=== PATIENT | female | born 1970 | race Caucasian/White ===

== ENCOUNTER 2020-07-29 11:05 | Inpatient (IN) | payer OTHER ==
[~2020-07-29] VITALS: Ht 160 cm; Wt 76.2 kg
[2020-07-29] MEDS ORDERED: COZAAR100 MG PO (11:11)
[2020-07-29 11:42] LABS: BASOPHILS 1.1 % (0-2); EOSINOPHILS 1.1 % (0-7); HEMATOCRIT 41.3 % (36.0-48.0); LYMPHOCYTES 16.1 % (15-50); MCH 32.6 pg (26.0-34.0); MCV 95.9 fL (80.0-100.0); MEAN PLATELET VOLUME 7.6 fL (7.4-10.4); MONOCYTES 12.5 % (2-11); NEUTROPHILS 69.2 % (40-80); PLATELET COUNT 199 10x3/uL (130-400); RBC 4.31 10x6/uL (4.00-5.40); RDW 15.4 % (11.5-14.5); WBC 6.5 10x3/uL (4.8-10.8)
[2020-07-29 11:50] LABS: ANION GAP 11.2 mmol/L (8-16); CALCIUM 9.1 mg/dL (8.5-10.1); CARBON DIOXIDE 27.8 mmol/L (21.0-32.0); CREATININE - SERUM 1.8 mg/dL (0.6-1.3)
[2020-07-29 12:02] LABS: ALBUMIN 3.4 g/dL (3.4-5.0); BILIRUBIN - TOTAL 12.81 mg/dL (0.2-1.3); PROTEIN - SERUM 7.5 g/dL (6.4-8.2)
[2020-07-29 13:34] LABS: APTT 31.9 SECONDS (22.8-39.4); INR 1.15 (0.85-1.17); PROTIME 13.6 SECONDS (11.6-15.0)
[2020-07-29 17:30] VITALS: BP 133/85
[2020-07-29 18:30] VITALS: BP 133/85; BMI 29.8
[2020-07-29 21:57] VITALS: BP 133/74
--- NOTE | 2020-07-29 22:00 | NUR ---
PT HAD HIBICLENS SHOWER. COMPLETE ASSESSMENT PER FLOWSHEET. NO OTHER NEEDS. WILL CONTINUE TO MONITOR.
[2020-07-30 04:35] LABS: BASOPHILS 1.4 % (0-2); EOSINOPHILS 2.2 % (0-7); HEMOGLOBIN 12.6 g/dL (12-16); LYMPHOCYTES 18.5 % (15-50); MCH 32.5 pg (26.0-34.0); MCHC 34.1 g/dL (31.0-37.0); MCV 95.3 fL (80.0-100.0); MEAN PLATELET VOLUME 8.2 fL (7.4-10.4); MONOCYTES 10.8 % (2-11); NEUTROPHILS 67.1 % (40-80); PLATELET COUNT 161 10x3/uL (130-400); RBC 3.88 10x6/uL (4.00-5.40); RDW 15.7 % (11.5-14.5)
[2020-07-30 04:37] LABS: WBC 4.8 10x3/uL (4.8-10.8)
[2020-07-30 04:54] LABS: ALBUMIN 2.7 g/dL (3.4-5.0); ANION GAP 9.7 mmol/L (8-16); BILIRUBIN - TOTAL 12.23 mg/dL (0.2-1.3); CALCIUM 8.4 mg/dL (8.5-10.1); CARBON DIOXIDE 27.5 mmol/L (21.0-32.0); CREATININE - SERUM 1.5 mg/dL (0.6-1.3); POTASSIUM - SERUM 4.2 mmol/L (3.5-5.1); PROTEIN - SERUM 6.1 g/dL (6.4-8.2)
--- NOTE | 2020-07-30 04:59 | NUR ---
ATTEMPTED TO CALL DR. CAMPUZANO TO VERIFY DATE OF SURGERY. ORDER FOR PT TO BE NPO AFTER MIDNIGHT ON 07/29/20 BUT DATE OF PROCEDURE ON CONSENT ORDER IS 07/31/20. PT STATES SHE THOUGHT SURGERY IS SUPPOSED TO BE TODAY WELL. UNABLE TO REACH DR. CAMPUZANO. LEFT VOICEMAIL MESSAGE LAST NIGHT AND RECORDING SAYS "CALL CUSTOMER UNAVAILABLE" THIS MORNING.
[2020-07-30 06:38] VITALS: BP 114/73
[2020-07-30 06:47] LABS: UDS - AMPHET NEGATIVE QUAL (NEGATIVE); UDS - BARB NEGATIVE QUAL (NEGATIVE); UDS - BENZO NEGATIVE QUAL (NEGATIVE); UDS - COCAINE NEGATIVE QUAL (NEGATIVE); UDS - OPIATE POSITIVE QUAL (NEGATIVE); UDS - PCP NEGATIVE QUAL (NEGATIVE); UDS - THC NEGATIVE QUAL (NEGATIVE)
[2020-07-30 07:38] LABS: BILIRUBIN NEGATIVE (NEGATIVE); KETONE NEGATIVE (NEGATIVE); NITRITE NEGATIVE (NEGATIVE); UROBILINOGEN NORMAL mg/dL (< 2)
[2020-07-30 07:39] LABS: BACTERIA FEW HPF (NONE SEEN); SQUAMOUS EPITHELIAL 0-5 HPF (0-4); WHITE CELLS - URINE 1 HPF (0-4)
[2020-07-30 09:11] LABS: HEPATITIS C ANTIBODY <0.1 S/CO RAT (0.0-0.9)
[2020-07-30 09:28] VITALS: BP 117/64
[2020-07-30 12:16] VITALS: BP 132/78
--- NOTE | 2020-07-30 12:43 | NUR ---
0700 BEDSIDE REPORT RECEIVED REMAINS NPO FOR PROCEEDURE
--- NOTE | 2020-07-30 12:56 | NUR ---
0800 DR CAMPUZANO A BEDSIDE TELLIMG PT HER SURGERY WILL BE TOMORROW 6/ CLEAR LIQUIDS ORDERED
--- NOTE | 2020-07-30 12:57 | NUR ---
5266 DR CAMPUZANO CALLED TO INFORM THAT HE WILL DO HER SURGERY TODAY REMOVED ICE WATER FROM ROOM PATIENT IS IN SHOWER AT [facility] INFORMED ANESTHESIA THAT PT HAD WATER 45 MIN AGO.
--- NOTE | 2020-07-30 12:59 | NUR ---
1225 PT OUT OF SHOWER AND REPORTED SHE HAD 450 ML OF SPRITE NOTIFIED SURGERY STAFF THAT LAST INTAKE WAS AT 1145 AM
--- NOTE | 2020-07-30 13:02 | NUR ---
1235 EKG COMPLETE. INSTRUCTED NPO VERBALIZED UNDERSTANDING PT CALLED SON TO INFORM HIM OF HER SURGERY TODAY
[2020-07-30 14:42] VITALS: Ht 160 cm; Wt 76.2 kg
--- NOTE | 2020-07-30 17:49 | NUR ---
PT ACTIVELY SICK UPON ENTRY TO ROOM. ADMINISTERED PHENERGAN ACCORDING TO PACU ORDERS.
--- NOTE | 2020-07-30 18:24 | NUR ---
1753 ARRIVED FROM PACU WITH STAFF [employer] OPERATOR GAVE DEMEROL IV INITIATED FREQUENT VITAL SIGNS SON REMAINS AT BEDSIDE
[2020-07-30 20:00] VITALS: BP 119/67
[2020-07-31 00:53] VITALS: BP 122/67
[2020-07-31 04:00] VITALS: BP 112/61
[2020-07-31 07:17] LABS: BASOPHILS 0.5 % (0-2); EOSINOPHILS 0 % (0-7); HEMATOCRIT 37.9 % (36.0-48.0); LYMPHOCYTES 7.7 % (15-50); MCH 33.2 pg (26.0-34.0); MCHC 34.2 g/dL (31.0-37.0); MCV 97.1 fL (80.0-100.0); MEAN PLATELET VOLUME 8.6 fL (7.4-10.4); MONOCYTES 4.5 % (2-11); NEUTROPHILS 87.3 % (40-80); PLATELET COUNT 187 10x3/uL (130-400); RBC 3.91 10x6/uL (4.00-5.40); RDW 16.3 % (11.5-14.5)
[2020-07-31 07:24] LABS: WBC 7.1 10x3/uL (4.8-10.8)
[2020-07-31 08:02] LABS: ALBUMIN 2.9 g/dL (3.4-5.0); ANION GAP 12.5 mmol/L (8-16); BILIRUBIN - TOTAL 12.08 mg/dL (0.2-1.3); CREATININE - SERUM 1.3 mg/dL (0.6-1.3); POTASSIUM - SERUM 4.5 mmol/L (3.5-5.1); PROTEIN - SERUM 6.5 g/dL (6.4-8.2)
--- NOTE | 2020-07-31 08:32 | NUR ---
PT RESTING IN BED WITH EYES CLOSED. AWAKENS WITH STAFF CALLING NAME. NO ACUTE DISTRESS NOTED. REPORTS PAIN 3/10 AT THIS TIME, FOLLOWING PRN PAIN MEDICATIONS. IV TO LEFT AC WITH NS @ 75ML/HR INFUSING VIA PUMP. SITE WITHOUT REDNESS OR EDEMA. LAP SITES X 3 TO ABDOMEN, C/D/I, ABDIEL DRAIN INTACT WITH SCANT AMOUNT OF DRAINAGE NOTED AT THIS TIME. DENIES FURTHER NEEDS AT THIS TIME. CL WITHIN REACH. ENCOURAGED TO CALL WITH NEEDS. CONTINUE POC
[2020-07-31 08:53] VITALS: BP 111/62
[2020-07-31 12:58] VITALS: BP 113/68
[2020-07-31 17:11] VITALS: BP 138/74
[2020-07-31 20:00] VITALS: BP 127/83
[2020-08-01] VITALS: BP 124/66
[2020-08-01 04:00] VITALS: BP 121/67
[2020-08-01 05:39] LABS: BASOPHILS 0.9 % (0-2); EOSINOPHILS 1.7 % (0-7); HEMATOCRIT 35.3 % (36.0-48.0); HEMOGLOBIN 12.1 g/dL (12-16); LYMPHOCYTES 12.1 % (15-50); MCH 33.3 pg (26.0-34.0); MCHC 34.4 g/dL (31.0-37.0); MCV 96.7 fL (80.0-100.0); MEAN PLATELET VOLUME 8.6 fL (7.4-10.4); MONOCYTES 7.5 % (2-11); NEUTROPHILS 77.8 % (40-80); PLATELET COUNT 174 10x3/uL (130-400); RBC 3.65 10x6/uL (4.00-5.40); WBC 7.2 10x3/uL (4.8-10.8)
[2020-08-01 05:48] LABS: ALBUMIN 2.5 g/dL (3.4-5.0); BILIRUBIN - TOTAL 7.95 mg/dL (0.2-1.3); CALCIUM 7.8 mg/dL (8.5-10.1); CREATININE - SERUM 1.1 mg/dL (0.6-1.3); PROTEIN - SERUM 6.1 g/dL (6.4-8.2)
[2020-08-01 05:52] LABS: ANION GAP 7.7 mmol/L (8-16); POTASSIUM - SERUM 3.7 mmol/L (3.5-5.1)
--- NOTE | 2020-08-01 07:08 | NUR ---
0700 BEDSIDE REPORT RECEIVED AWAKE ALERT DR CAMPUZANO AT BEDSIDE VOCES NO; COMPLAINTS AT THIS TIME
[2020-08-01 10:07] VITALS: BP 119/75
[2020-08-01] MEDS ORDERED: ZOFRAN ODT4 MG/UDTAB PO (12:13)
[2020-08-01] MEDS ORDERED: PROTONIX40 MG PO (12:13)
--- NOTE | 2020-08-01 12:13 | NUR ---
Nutrition Follow-up: Patient is POD2 lap norma with IOC. Diet: Regular PO intake: ~81% average x last 4 meals Last BM: 07/30/20 x 2 Wt: 168# (07/30/20) Meds reviewed Labs noted: Glu 161(H) Recommend continue Regular PO diet as tolerated or per Sx. RD will follow-up within 5-7 days.
[2020-08-01 12:50] VITALS: BP 136/82
--- NOTE | 2020-08-01 15:37 | NUR ---
[address] CAMPUZANO REMOVED HER ABDIEL DRAIN AND BAKER ABDIEL SITE SATISFACTORY DTV
--- NOTE | 2020-08-01 15:39 | NUR ---
1200 VOIDED WITHOUT DIFFICULTY
--- NOTE | 2020-08-01 15:39 | NUR ---
1300 D/C SALINE LOCK WAITING ON DISCHARGE PAPERS TO GO HOME
[2020-08-01] MEDS ORDERED: LEVOFLOXACIN500 MG PO (15:41)
--- NOTE | 2020-08-01 16:17 | NUR ---
1605 WRITTEN AND VERBAL DISCHARGE INSTRUCTIONS PROVIDED PT ANDHER ADULT SON VERBALIZED UNDERSTANDING RX X 2 GIVE INSTRUCTED THAT NEGRITO WAS CALLED IN TO [facility] [place] TRANSPORTED TO FRONT ENTRANCE VIA WITH HER SON HE DRIVE HER HOME
--- NOTE | 2020-08-02 07:57 | MORECARE ---
CASE MANAGEMENT DISCHARGE SUMMARY PATIENT: RANDALL URENA UNIT: [id number] ADM DATE: 07/29/20 AGE: 50 : 66 SEX: F ROOM/BED: D.220 AUTHOR: ODILIA,DOC PHYSICIAN: REFERRING PHYSICIAN: KIRSTEN MORENO MD DATE OF SERVICE: 08/02/20 Case Management Discharge Planning Summary DCP REVIEW SUMMARY ANTICIPATED D/C DATE: EXPECTED LOS : 0 CASE STATUS: DCP Complete INITIAL REVIEW: 07/29/2020 INITIAL REVIEWER: Bibi Dhillon FINAL DISCHARGE DISPOSITION: : FINAL REVIEWER: Bibi Dhillon FINAL REVIEW DATE: 08/02/2020 DCP [employer] Questions & Answers QUESTION: ANSWER : PATIENT: RANDALL URENA ENCOUNTER: [id number] MEDICAL RECORD#: [id number] ADMISSION DATE: 07/29/2020 DISCHARGE DATE: 08/01/2020 ATTENDING MD: KIRSTEN CABALLERO : AGE: 50 MARITAL STATUS: S DC PLAN ID: [id number] FACILITY: [facility] PRINTED ON: 08/02/20 7:57 CT All edits/amendments must be made on the electronic document DICTATION DATE: 08/02/20756 [employer] ATTENDANT: PRATIK 08/02/20756 RPT#: [id number] DC DATE:08/01/20 STATUS: DIS IN [facility] [address] [place] [address] END OF REPORT
== END 2020-08-01 16:05 | disposition home or self-care (01) | DRG 417 ==
LOC: D.ER 11:05 → D.MS 13:42 → D.EDHOLD 13:42 → D.MS 15:01
PROVIDERS: Emergency Medicine; Surgery; ADMIT Family Medicine; ATTEND Family Medicine
PROC: BF101ZZ Fluoroscopy of Bile Ducts using Low Osmolar Contrast (ICD-10-PCS; 2020-07-30)
PROC: 0FT44ZZ Resection of Gallbladder, Percutaneous Endoscopic Approach (ICD-10-PCS; principal; 2020-07-30 16:00)
PROC: 0FB04ZX Excision of Liver, Percutaneous Endoscopic Approach, Diagnostic (ICD-10-PCS; 2020-07-30 16:00)
DX: K80.42 Calculus of bile duct with acute cholecystitis without obstruction (principal); K72.00 Acute and subacute hepatic failure without coma; N17.9 Acute kidney failure, unspecified; B16.9 Acute hepatitis B without delta-agent and without hepatic coma; I10 Essential (primary) hypertension

== ENCOUNTER → 2020-08-11 10:54 | Outpatient (CLI) | payer OTHER ==
[2020-07-30 14:42] VITALS: BMI 29.7
[~2020-08-11 10:54] MED LIST: COZAAR100 MG PO; LEVOFLOXACIN500 MG PO; PROTONIX40 MG PO; ZOFRAN ODT4 MG/UDTAB PO
[2020-08-11 11:37] LABS: ALBUMIN 3.4 g/dL (3.4-5.0); ALKALINE PHOSPHATASE 201 U/L (30-120); ALT (SGPT) 780 U/L (10-68); BILIRUBIN - TOTAL 4.24 mg/dL (0.2-1.3); CALC OSMOLALITY 278 mosm/kg (275-300); CALCIUM 8.9 mg/dL (8.5-10.1); CHLORIDE - SERUM 105 mmol/L (98-107); CREATININE - SERUM 0.8 mg/dL (0.6-1.3); POTASSIUM - SERUM 4.4 mmol/L (3.5-5.1); PROTEIN - SERUM 8.2 g/dL (6.4-8.2); SODIUM 139 mmol/L (136-145); UREA NITROGEN 14 mg/dL (7-18); eGFR NON AFRICAN AMERICAN 80 mL/min (90-120)
[2020-08-11 11:43] LABS: GLUCOSE 93 mg/dL (74-106)
== END | disposition home or self-care (01) ==
LOC: D.LAB 10:54
PROVIDERS: ATTEND Surgery
DX: R17 Unspecified jaundice (principal)